=== PATIENT | female | born 1985 | race Caucasian/White ===

== ENCOUNTER 2021-02-06 19:14 | Emergency (ER) | payer OTHER, SELFPAY ==
[2021-02-06 19:30] VITALS: BP 133/93; PULSE 96; RESP 16; TEMP 37.1; O2SAT 99; BMI 26.6
--- NOTE | 2021-02-06 19:54 | PC.NURSE ---
Pt extremely anxious, temp 98.7 orally. pt denies drug/ETOH use at this time. Pt on monitor and stating Im really tired . pt remains awake with periods of sleeping then wakes to voice. Warm blankets applied to pt for warmth. Verbal reassurance to pt and boyfriend at bedside. will continue to monitor pt.
--- NOTE | 2021-02-06 21:02 | PC.NURSE ---
PT STATES IM FEELING BETTER AND WARMER . RIGHT KNEE SMALL LAC. LAC CLEANED UP AND BANDAGE APPLIED TO AREA. NO SUTURING REQUIRED PER DR. RIZZO. PT REMAINS AWAKE AND ALERT, RESPIRATIONS EASY N/L, SKIN W/D. PT REMAINS ON MONITOR WITH HR 89. PT DENIES ANY COMPLAINTS AT THIS TIME WILL CONTINUE TO MONITOR PT. BOYFRIEND LEFT ED FOR WARM CLOTHING.
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
[2021-02-06 21:53] LABS: MANUAL DIFF FLAG NO
[2021-02-06 21:59] LABS: Basophils Percent Auto 0.2 % (0-2); Eosinophils Percent Auto 0.3 % (0-4); Hematocrit 33.9 % (37-47); Hemoglobin 11.2 g/dl (12.0-16.0); Imm Gran Abs Auto 0.01 X10*3/uL (0.00-0.03); Imm Gran Pct Auto 0.2 % (0.0-0.4); Lymphocytes Absolute Auto 2.1 X10*3/uL (1.2-4.9); Lymphocytes Percent Auto 37.3 % (20-40); Mean Corpuscular Hemoglobin 31.3 pg (27.0-33.0); Mean Corpuscular Volume 94.7 fL (80-98); Mean Platelet Volume 10.5 fL (9.4-12.3); Monocytes Absolute Auto 0.3 X10*3/uL (0.1-1.2); Monocytes Percent Auto 4.9 % (2-11); Neutrophils Absolute Auto 3.3 X10*3/uL (2.0-8.3); Neutrophils Percent Auto 57.1 % (45-73); Platelet Count 132 X10*3/uL (160-400); Red Blood Count 3.58 X10*6/uL (4.20-5.50); Red Cell Distribution Width 12.3 % (11.0-16.0); White Blood Count 5.7 X10*3/uL (4.8-10.8)
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
[2021-02-06 22:30] LABS: Anion Gap 12 (12-20); Blood Urea Nitrogen 15 mg/dL (9-16); Calcium 8.8 mg/dL (8.4-10.2); Carbon Dioxide 24 mmol/L (22-29); Chloride 107 mmol/L (96-108); Creatinine Clr Calc Pharmacy 102.5; Estimated Glomerular Filt Rate > 60; Glucose Random 92 mg/dL (60-115); Potassium 3.8 mmol/L (3.3-5.1); Sodium 139 mmol/L (135-145)
[2021-02-06 22:38] LABS: HCG Quantitative < 2 mIU/mL
--- NOTE | 2021-02-06 23:24 | PC.NURSE ---
WHEN GOING BACK TO ROOM PT WAS NOT IN ROOM. ATTEMPTED TO CALL PT THAT SHE LEFT CLOTHES HERE AND NUMBER WAS WRONG NUMBER.
== END 2021-02-06 23:44 | disposition left against medical advice (07) ==
PROVIDERS: Emergency Provider Emergency Medicine; PCP Internal Medicine
DX: R55 Syncope and collapse (principal); M25.561 Pain in right knee; R50.9 Fever, unspecified
CPT/HCPCS: 36415; 80048; 84484; 84702; 85025; 99283